=== PATIENT | female | born 1985 | race Caucasian/White ===

== ENCOUNTER 2022-04-27 12:53 | Emergency (ER) | payer MEDICAID ==
[~2022-04-27] VITALS: Ht 157.5 cm; Wt 101.0 kg
[2022-04-27 13:10] VITALS: BP 142/98
[2022-04-27] MEDS ORDERED: CYCL-1 PO ×2 (13:47→17:37)
== END 2022-04-27 14:07 | disposition home or self-care (01) ==
LOC: ER 12:54
DX: M54.9 Dorsalgia, unspecified (principal); G89.29 Other chronic pain; Z88.8 Allergy status to other drugs, medicaments and biological substances; Z79.899 Other long term (current) drug therapy
CPT/HCPCS: 99283